=== PATIENT | male | born 1955 | race Caucasian/White ===

== ENCOUNTER → 2024-08-23 | Outpatient (CLI) | payer OTHER ==
[~2024-08-23] MED LIST: Albuterol 0.083% Neb Soln 2.5 MG/3 ML UD IH ONE; GLUCOPHAGE500 MG/TAB PO; MOBIC15 MG PO; NORVASC 5MG5 MG/TAB PO; PRIL40 PO
== END ==
LOC: COL.CARD 08:00
DX: R05.9 Cough, unspecified (principal)